=== PATIENT | male | born 1965 | race Caucasian/White ===

== ENCOUNTER 2022-10-01 09:05 | Emergency (ER) | payer MEDICAID ==
[~2022-10-01] VITALS: Ht 167.6 cm; Wt 83.9 kg
[2022-10-01 09:13] VITALS: BP 141/89
--- NOTE | 2022-10-01 09:17 | NUR ---
AT BEDSIDE FOR EVAL
[2022-10-01] MEDS ORDERED: AMOX-430 PO (09:23)
== END 2022-10-01 09:31 | disposition home or self-care (01) ==
LOC: ER 09:11
DX: K08.89 Other specified disorders of teeth and supporting structures (principal); Z79.899 Other long term (current) drug therapy